=== PATIENT | male | born 1960 | race Caucasian/White ===

== ENCOUNTER → 2018-01-16 12:53 | Outpatient (CLI) | payer OTHER, SELFPAY ==
--- NOTE | 2018-01-16 13:04 | XR_ITS ---
XR facial bones min 3V COMPARISON: None HISTORY: Facial laceration TECHNIQUE: Valentin view, PA and lateral views FINDINGS: There is mild soft tissue swelling of the fore head and bridging of the nose. The nasal bone is intact. The orbital rims and orbital floors appear intact. The paranasal sinuses are clear. The nasal septum is in the midline. IMPRESSION: Diffuse soft tissue swelling of the fore head and bridging of the nose, no definite facial bone fracture identified
== END ==
PROVIDERS: PCP Nurse Practitioner Family; Visit Provider Nurse Practitioner Family
DX: S01.81XA Laceration without foreign body of other part of head, initial encounter (principal)
CPT/HCPCS: 70150

== ENCOUNTER → 2018-12-23 12:00 | Outpatient (CLI) | payer OTHER, SELFPAY ==
[2018-12-23 13:11] LABS: Erythrocyte Sedimentation Rate 9 mm/hr (0-20)
[2018-12-23 13:23] LABS: C-Reactive Protein < 0.2 mg/L (0.0-0.9); Chol/HDL Ratio 6.6 (1-3.5); Cholesterol 172 mg/dL (140-200); HDL Cholesterol 26 mg/dL (27-67); LDL Cholesterol 75 mg/dL (0-130); T4 (Thyroxine) 9.7 ug/dl (4.7-13.3); Thyroid Stimulating Hormone 2.52 uIU/ml (0.358-3.740); Triglycerides 354 mg/dL (30-200); VLDL Cholesterol 71 mg/dL (0-40)
[2018-12-24 08:57] LABS: PSA, Free 0.29 ng/mL; Prostate Specific Ag 1.1 ng/mL (0.0-4.0)
== END ==
PROVIDERS: Visit Provider Nurse Practitioner Family
DX: K52.9 Noninfective gastroenteritis and colitis, unspecified (principal); F41.9 Anxiety disorder, unspecified; I25.2 Old myocardial infarction; R10.84 Generalized abdominal pain; Z85.51 Personal history of malignant neoplasm of bladder
CPT/HCPCS: 36415; 80061; 84153; 84154; 84436; 84443; 85651; 86140

== ENCOUNTER → 2019-01-06 14:18 | Outpatient (CLI) | payer OTHER, SELFPAY ==
--- NOTE | 2019-01-06 14:22 | XR_ITS ---
XR chest 2V HISTORY: ITS.REASON: tob abuse ORDERING PHYSICIAN: Sin Haney MD PATIENT AGE: 58 years COMPARISON: None available FINDINGS: The cardiomediastinal silhouette and pulmonary vascularity are within normal limits. Mild emphysematous changes seen with mild hyperexpansion lung cuevas and flattening of hemidiaphragms. The lungs are clear without infiltrates. Is a noncalcified pulmonary nodule left upper lobe with some minimal stranding extending to the left apex. There is no pleural fluid. ,IMPRESSION: Mild or borderline COPD noncalcified pulmonary nodule left upper lobe measuring 1.1 cm in diameter and suggest a follow-up CT scan the chest for better evaluation and to evaluate for additional nodules in view of the smoking history
== END ==
PROVIDERS: PCP Nurse Practitioner Family; Visit Provider Internal Medicine
DX: Z72.0 Tobacco use (principal); I72.3 Aneurysm of iliac artery; I83.891 Varicose veins of right lower extremity with other complications; M79.604 Pain in right leg; E78.5 Hyperlipidemia, unspecified; I10 Essential (primary) hypertension; R20.0 Anesthesia of skin; R94.31 Abnormal electrocardiogram [ECG] [EKG]
CPT/HCPCS: 71046

== ENCOUNTER → 2019-01-13 12:12 | Outpatient (CLI) | payer OTHER, SELFPAY ==
--- NOTE | 2019-01-13 12:16 | NM_ITS ---
CARDIOLITE SPECT MYOCARDIAL PERFUSION LEXISCAN, REST AND STRESS: [facility] REVIEW QGS EF AND WALL MOTION EVALUATION: QPS - PERFUSION EVALUATION HISTORY: abn ekg DOSE: 10.28 mCi technetium 99m mibi intravenously at rest followed by 30.0 mCi technetium 99m mibi following the intravenous ministration of 0.4 mg of Lexiscan. Resting blood pressure is 131/80. Stress blood pressure 120/70. FINDINGS: Ejection fraction is calculated to be 45% Stress images reveal severely decreased activity in the inferior apical and septal wall. Rest images reveal no change. Gated images calculated ejection fraction of 45% with inferior apical septal hypokinesis. 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 This is an abnormal stress test in the high risk adequate coronary which requires clinical correlation
--- NOTE | 2019-01-13 14:52 | HMH.ITSHM ---
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 []LISINOPRIL LIPITOR
== END ==
PROVIDERS: PCP Nurse Practitioner Family; Visit Provider Internal Medicine
DX: R94.31 Abnormal electrocardiogram [ECG] [EKG] (principal); I72.3 Aneurysm of iliac artery; E78.5 Hyperlipidemia, unspecified; I10 Essential (primary) hypertension; I83.891 Varicose veins of right lower extremity with other complications; M79.604 Pain in right leg; R20.0 Anesthesia of skin
CPT/HCPCS: 78452; 93017; A9502; J2785

== ENCOUNTER → 2019-02-01 14:24 | Outpatient (CLI) | payer OTHER, SELFPAY ==
--- NOTE | 2019-02-01 14:26 | CT_ITS ---
CT chest wo con HISTORY: Follow-up abnormal chest x-ray, lung nodule, solitary pulmonary nodule ITS.REASON: nodule seen on cxr ORDERING PHYSICIAN: Carleen Tinajero APRN PATIENT AGE: 58 years COMPARISON: 01/06/2019 Technique: Axial images obtained. Sagittal, and coronal reformatted images are also generated and reviewed. All CT scans at the facility use one or more dose reduction, viz: automated exposure control, ma/kV adjustment per patient size (including targeted exams where dose is matched to indication, i.e. head), or iterative reconstruction technique. FINDINGS: There are scattered small nodes within the mediastinum. There is mild thickening of the pericardium anteriorly measuring approximately 11 mm. Coronary artery calcifications are present. There is increased soft tissue density which is anterior to the base of the aorta and 15 mm. This may be related to small amount fluid within the superior recess of the pericardium. Follow-up may confirm. No hilar mass. Scattered small nodes are present in the axilla There is diffuse panlobular emphysematous changes with scattered areas of fibrosis. There is a calcified nodule in the left upper lobe corresponding to the radiographic abnormality. Calcified nodules present in the right lung base posteriorly. There is noncalcified nodule left lower lobe posterior laterally at 5 mm. There are scattered small nodes in the periaortic region along the descending thoracic aorta. These have been present dating back to 04/21/2012. IMPRESSION: 1. Diffuse centrilobular edema with scattered fibrosis. 2. Radiographic abnormality in the left upper lobe corresponds to a 12 mm calcified nodule consistent with granuloma. 3. 5 mm noncalcified nodule left lower lobe posterior laterally 4. Mild thickening of the pericardium suspicious for small pericardial effusion with suspected small amount of fluid in the superior recess of the pericardium
== END ==
PROVIDERS: PCP Nurse Practitioner Family; Visit Provider Nurse Practitioner Family
DX: R91.8 Other nonspecific abnormal finding of lung field (principal); R93.89 Abnormal findings on diagnostic imaging of other specified body structures
CPT/HCPCS: 71250

== ENCOUNTER → 2019-05-18 10:12 | Outpatient (POV) | payer OTHER, SELFPAY | PROVIDERS: Visit Provider Internal Medicine | DX: Z00.00 Encounter for general adult medical examination without abnormal findings (principal) ==

== ENCOUNTER → 2019-05-26 14:24 | Outpatient (CLI) | payer OTHER, SELFPAY ==
[2019-05-26 15:30] VITALS: PULSE 85; PULSE 92
== END ==
PROVIDERS: PCP Nurse Practitioner Family; Visit Provider Internal Medicine
DX: J43.9 Emphysema, unspecified (principal); R06.02 Shortness of breath
CPT/HCPCS: 94060; 94618; 94640; 94727; 94729

== ENCOUNTER → 2019-08-27 11:47 | Outpatient (CLI) | payer OTHER, SELFPAY ==
[2019-08-27 12:20] LABS: Basophils # 0.1 K/mm3 (0-0.2); Basophils % 0.7 % (0.1-2.0); Eosinophils # 0.1 K/mm3 (0.0-0.4); Hematocrit 51.6 % (42.0-52.0); Hemoglobin 16.8 g/dL (14.1-18.0); Lymphocytes # 3.2 K/mm3 (0.7-4.5); Lymphocytes % 33.1 % (10-50); Mean Corpuscular HGB Conc 32.6 g/dL (31.8-35.4); Mean Corpuscular Hemoglobin 31.5 pg (27.0-31.2); Mean Corpuscular Volume 96.5 fl (80-94); Mean Platelet Volume 10.3 fl (7.4-10.4); Monocytes # 0.5 K/mm3 (0.1-1.0); Monocytes % 5.6 % (1.7-9.3); Neutrophils # 5.7 K/mm3 (1.8-7.8); Neutrophils % 59.6 % (37.0-80.0); Platelet Count 221 K/mm3 (142-424); Red Blood Count 5.34 M/mm3 (4.60-6.20); Red Cell Distribution Width 13.5 % (11.5-17.5); White Blood Count 9.6 K/mm3 (4.8-10.8)
[2019-08-27 13:04] LABS: Hemoglobin A1C 5.9 % (0.0-7.0)
[2019-08-27 17:29] LABS: Alanine Aminotransferase 41 U/L (12-78); Albumin Level 4.3 gm/dL (3.4-5.0); Albumin/Globulin Ratio 1.3 (1.1-1.8); Alkaline Phosphatase 85 U/L (46-116); Anion Gap 16.6 mEq/L (5-15); Aspartate Amino Transferase 20 U/L (15-37); Bilirubin,Total 0.4 mg/dL (0.2-1.0); Blood Urea Nitrogen 11 mg/dL (7-18); Calcium 8.9 mg/dL (8.5-10.1); Carbon Dioxide 22 mmol/L (21.0-32.0); Chloride 102 mmol/L (98-107); Cholesterol 133 mg/dL (140-200); Creatinine,Serum 0.89 mg/dL (0.70-1.30); Estimated Glomerular Filt Rate 88 ml/min (>60); GFR (African American) 107 ML/MIN (>60); Globulin 3.3 gm/dl (1.3-3.2); Glucose 129 mg/dL (74-106); HDL Cholesterol 22 mg/dL (27-67); LDL Cholesterol 32 mg/dL (0-130); Potassium 4.6 mmoL/L (3.5-5.1); Sodium 136 mmol/L (136-145); Total Protein,Serum 7.6 gm/dL (6.4-8.2); Triglycerides 394 mg/dL (30-200); VLDL Cholesterol 79 mg/dL (0-40)
== END ==
PROVIDERS: Visit Provider Nurse Practitioner Family
DX: D72.829 Elevated white blood cell count, unspecified (principal); I10 Essential (primary) hypertension; R73.09 Other abnormal glucose; E78.5 Hyperlipidemia, unspecified
CPT/HCPCS: 36415; 80053; 80061; 83036; 85025

== ENCOUNTER → 2020-03-07 17:51 | Outpatient (CLI) | payer MEDICAID, SELFPAY ==
[2020-03-07 18:32] LABS: Basophils # 0.1 K/mm3 (0-0.2); Basophils % 0.6 % (0.1-2.0); Eosinophils # 0.1 K/mm3 (0.0-0.4); Eosinophils % 0.9 % (0.1-12.0); Hematocrit 48.1 % (42.0-52.0); Hemoglobin 16.5 g/dL (14.1-18.0); Lymphocytes # 3.1 K/mm3 (0.7-4.5); Lymphocytes % 32.1 % (10-50); Mean Corpuscular HGB Conc 34.3 g/dL (31.8-35.4); Mean Corpuscular Hemoglobin 32.5 pg (27.0-31.2); Mean Corpuscular Volume 94.7 fl (80-94); Mean Platelet Volume 11.8 fl (7.4-10.4); Monocytes # 0.4 K/mm3 (0.1-1.0); Monocytes % 4.5 % (1.7-9.3); Neutrophils % 61.8 % (37.0-80.0); Platelet Count 242 K/mm3 (142-424); Red Blood Count 5.08 M/mm3 (4.60-6.20); Red Cell Distribution Width 12.8 % (11.5-17.5); White Blood Count 9.7 K/mm3 (4.8-10.8)
[2020-03-07 18:40] LABS: Chloride 107 mmol/L (98-107); Sodium 139 mmol/L (136-145)
[2020-03-07 18:41] LABS: Potassium 4.2 mmoL/L (3.5-5.1)
[2020-03-07 18:43] LABS: Alanine Aminotransferase 37 U/L (12-78); Albumin Level 4.5 g/dl (3.5-5.0); Albumin/Globulin Ratio 1.7 (1.1-1.8); Alkaline Phosphatase 96 U/L (38-126); Anion Gap 16.2 mEq/L (5-15); Aspartate Amino Transferase 36 U/L (17-59); Bilirubin,Total 0.5 mg/dl (0.2-1.3); Blood Urea Nitrogen 16 mg/dl (9-20); Carbon Dioxide 20 mmol/L (22.0-30.0); Estimated Glomerular Filt Rate 99 ml/min (>60); GFR (African American) 120 ML/MIN (>60); Globulin 2.7 g/dL (1.3-3.2); Total Protein,Serum 7.2 g/dl (6.3-8.2)
[2020-03-07 18:44] LABS: Calcium 9.1 mg/dl (8.4-10.2); Cholesterol 93 mg/dl (140-200); Glucose 163 mg/dl (74-100); HDL Cholesterol 31 mg/dl (40-60); Triglycerides 272 mg/dl (30-150); VLDL Cholesterol 54 mg/dL (0-40)
[2020-03-07 19:23] LABS: Direct LDL Cholesterol 49.25 mg/dL (100-129)
[2020-03-07 19:29] LABS: T4 (Thyroxine) 7.5 ug/dl (5.53-11.0)
[2020-03-09 10:00] LABS: PSA, Free 0.31 ng/mL; Prostate Specific Ag 1.3 ng/mL (0.0-4.0)
== END ==
PROVIDERS: Visit Provider Nurse Practitioner Family
DX: E78.5 Hyperlipidemia, unspecified (principal); I10 Essential (primary) hypertension
CPT/HCPCS: 80053; 80061; 82652; 84153; 84154; 84436; 84443; 85025

== ENCOUNTER → 2020-11-24 17:26 | Outpatient (CLI) | payer MEDICAID, SELFPAY ==
[2020-11-24 17:48] LABS: Basophils # 0.1 K/mm3 (0-0.2); Basophils % 0.6 % (0.1-2.0); Eosinophils % 0.4 % (0.1-12.0); Hematocrit 52.4 % (42.0-52.0); Hemoglobin 17.4 g/dL (14.1-18.0); Lymphocytes # 3.2 K/mm3 (0.7-4.5); Lymphocytes % 33.7 % (10-50); Mean Corpuscular HGB Conc 33.2 g/dL (31.8-35.4); Mean Corpuscular Hemoglobin 32.1 pg (27.0-31.2); Mean Corpuscular Volume 96.6 fl (80-94); Mean Platelet Volume 12.4 fl (7.4-10.4); Monocytes # 0.5 K/mm3 (0.1-1.0); Monocytes % 5.8 % (1.7-9.3); Neutrophils # 5.6 K/mm3 (1.8-7.8); Neutrophils % 59.5 % (37.0-80.0); Platelet Count 208 K/mm3 (142-424); Red Blood Count 5.43 M/mm3 (4.60-6.20); Red Cell Distribution Width 12.8 % (11.5-17.5); White Blood Count 9.4 K/mm3 (4.8-10.8)
[2020-11-24 18:29] LABS: Chloride 106 mmol/L (98-107); Potassium 5.6 mmoL/L (3.5-5.1); Sodium 143 mmol/L (136-145)
[2020-11-24 18:31] LABS: Alanine Aminotransferase 52 U/L (12-78); Anion Gap 16.6 mEq/L (5-15); Aspartate Amino Transferase 39 U/L (17-59); Blood Urea Nitrogen 17 mg/dl (9-20); Carbon Dioxide 26 mmol/L (22.0-30.0); Estimated Glomerular Filt Rate 86 ml/min (>60); GFR (African American) 105 ML/MIN (>60)
[2020-11-24 18:32] LABS: Albumin Level 5.2 g/dl (3.5-5.0); Albumin/Globulin Ratio 1.5 (1.1-1.8); Alkaline Phosphatase 82 U/L (38-126); Bilirubin,Total 0.6 mg/dl (0.2-1.3); Calcium 10.7 mg/dl (8.4-10.2); Chol/HDL Ratio 4.2 (1-3.5); Cholesterol 133 mg/dl (140-200); Globulin 3.4 g/dL (1.3-3.2); Glucose 138 mg/dl (74-100); HDL Cholesterol 32 mg/dl (40-60); Total Protein,Serum 8.6 g/dl (6.3-8.2); Triglycerides 165 mg/dl (30-150); VLDL Cholesterol 33 mg/dL (0-40)
[2020-11-24 18:43] LABS: Direct LDL Cholesterol 54.35 mg/dL (100-129)
[2020-11-24 18:47] LABS: Free T4 (Free Thyroxine) 0.99 ng/dl (0.78-2.19)
[2020-11-24 19:04] LABS: Thyroid Stimulating Hormone 2.71 uIU/mL (0.465-4.68)
== END ==
PROVIDERS: Visit Provider Nurse Practitioner Family
DX: I72.3 Aneurysm of iliac artery (principal); I83.891 Varicose veins of right lower extremity with other complications; I10 Essential (primary) hypertension; E78.5 Hyperlipidemia, unspecified; Z12.5 Encounter for screening for malignant neoplasm of prostate
CPT/HCPCS: 80053; 80061; 82306; 84439; 84443; 85025; G0103

== ENCOUNTER → 2021-03-07 13:36 | Outpatient (CLI) | payer MEDICAID, SELFPAY | PROVIDERS: Visit Provider Urology | DX: Z01.812 Encounter for preprocedural laboratory examination (principal); Z20.822 Contact with and (suspected) exposure to COVID-19; C67.9 Malignant neoplasm of bladder, unspecified | CPT/HCPCS: U0003 ==

== ENCOUNTER 2021-03-09 09:53 | Day surgery (SDC) | payer MEDICAID, SELFPAY ==
[2021-03-06 09:13] VITALS: BMI 25.7
[2021-03-09 10:13] VITALS: BP 148/92; PULSE 88; RESP 16; TEMP 36.7; O2SAT 97
[2021-03-09 10:58] VITALS: BP 137/86; PULSE 84; RESP 18; TEMP 36.7; O2SAT 94
--- NOTE | 2021-03-09 11:10 | HMH.OPNOTE ---
Date of procedure: 03/09/21 Pre-op Diagnosis:: History of bladder cancer Post-op Diagnosis:: History of bladder cancer Procedure performed:: Surveillance cystoscopy Surgeon:: Bj Limon MD Anesthesia: local Estimated blood loss (mL): 0 Clinical Note:: Patient is a 60-year-old white male with history of bladder cancer. His initial tumor was resected in 2011 in the has had no recurrences since then. He denies any interval hematuria since his last cystoscopy 1 year ago. Operative findings:: No evidence of recurrence Operative note:: Patient taken to the cystoscopy suite after informed consent was obtained. On the stretcher is prepped draped in the standard surgical fashion and percent lidocaine placed into the urethra and the urethra clamped for 5 minutes. The flexible cystoscope and introduced into the urethral meatus and to the prostatic urethra which showed some mild hyperplasia. The bladder was entered and examined in a systematic fashion. There is no evidence of recurrent tumors. There is no evidence of trabeculation, cellules, stones or diverticula. The ureteral orifices in their normal anatomic position with clear efflux of urine. Bladder neck was within normal limits. The scope removed patient tolerated the procedure well we discussed the findings. We will see him back in 1 year for follow-up. Condition: stable Disposition: same day Specimens:: None Complications:: None
== END 2021-03-09 11:04 | disposition home or self-care (01) ==
LOC: OUTP 09:54
PROVIDERS: PCP Nurse Practitioner Family; Visit Provider Urology
PROC: (CPT 52000; principal; 2021-03-09 10:45)
DX: Z09 Encounter for follow-up examination after completed treatment for conditions other than malignant neoplasm (principal); Z85.51 Personal history of malignant neoplasm of bladder; Z90.6 Acquired absence of other parts of urinary tract; I10 Essential (primary) hypertension; E78.5 Hyperlipidemia, unspecified; Z79.899 Other long term (current) drug therapy
CPT/HCPCS: 52000

== ENCOUNTER 2021-04-03 10:18 | Emergency (ER) | payer MEDICAID, SELFPAY ==
[2021-04-03 10:20] VITALS: BP 138/89; PULSE 97; RESP 21; TEMP 37.4; O2SAT 96; BMI 26.9
--- NOTE | 2021-04-03 10:53 | HMH.EDUTC ---
[facility] [place] Clinical Impression: Sinusitis Qualifiers: Sinusitis location: unspecified location Chronicity: acute Recurrence: non-recurrent Qualified Code(s): J01.90 - Acute sinusitis, unspecified Disposition: Home, Self-Care Condition on Discharge: Good Instructions: DI for Sinusitis Additional Instructions: Drink plenty of fluids. Take tylenol or ibuprofen for pain or fever. Take the medications as directed. Follow up with your regular doctor. GO TO THE ER FOR ANY WORSENING SYMPTOMS Prescriptions: guaiFENesin [Mucinex 600mg tablet] 1 - 2 tab PO BIDP PRN #30 tab.er.12h PRN Reason: Congestion Transmission Status: Received by [facility] Azithromycin [Z-Kenny 250mg Tab*] 250 mg PO UD DOSE PK #6 tab Transmission Status: Received by [facility] Referrals: Ponce Nelson APRN [Primary Care Provider] - Time of Disposition: 11:10 Medical Decision Making - Medical Records Medical records reviewed: No: I reviewed the patient's medical records. - Rene Inquiry Pt receiving controlled substance: No Vital Signs: 04/03/21 10:20 04/03/21 11:13 Temperature 99.3 F 99.3 F Temperature Source Temporal Artery Scan Pulse Rate 97 H Pulse Rate [Right Brachial] 97 H Respiratory Rate 21 21 Blood Pressure 138/89 Blood Pressure [Right Arm] 138/89 Blood Pressure Mean [Right Arm] 105 Blood Pressure Source [Right Arm] Automatic Cuff Blood Pressure Position [Right Arm] Sitting 02 Sat by Pulse Oximetry 96 Oxygen Delivery Method Room Air [facility] [place] - General Stated complaint: sinus infectiomn Time Seen by Provider: 04/03/21 10:54 Mode of Arrival: Ambulatory Source of Information: Patient Limitations: No Limitations Description of Symptoms (Recalled from Triage Doc. by RN): PATIENT C/O SORE THROAT, HEADACHE, EAR PAIN, AND NASAL CONGESTION HEENT Symptoms (Recalled from RN notes): Yes Resp Symptoms (Recalled from RN notes): No Skin Symptoms (Recalled from RN notes): No MS Symptoms (Recalled from RN notes): No Functional Status (Recalled from RN notes): WNL - History of Present Illness Provider Complaint: He states that for the past 2 days he has had worsening sinus congestion, sinus pressure and left sided facial pressure. He is also having left sided ear pain. He originally started having sinus congestion around 2 weeks ago, but it worsened over the past 2 days. He denies any covid exposure that he knows of. He has been vaccinated against covid. He also states that he has had a negative covid test since his original symptoms began (he had a cystoscopy procedure done and and had to be tested before). - Related Data Home Medications Medication Instructions Recorded Confirmed Amitriptyline HCl [Elavil 25mg 25 mg PO DAILY 03/06/21 03/09/21 tablet] Atorvastatin Calcium [Lipitor 10mg See Rx Instructions .ROUTE .COMPLEX 03/06/21 03/09/21 Tab] Buspirone HCl [Buspar 10mg 10 mg PO BID 03/06/21 03/09/21 tablet] Sertraline HCl [Zoloft] 50 mg PO DAILY 03/06/21 03/09/21 Previous Rx's Medication Instructions Recorded gemfibrozil 600 mg tablet See Rx Instructions .ROUTE 03/14/21 .COMPLEX #180 tab lisinopril 5 mg tablet See Rx Instructions .ROUTE 03/14/21 .COMPLEX #90 tab Azithromycin [Z-Kenny 250mg Tab*] 250 mg PO UD DOSE PK #6 tab 04/03/21 guaiFENesin [Mucinex 600mg tablet] 1 - 2 tab PO BIDP PRN #30 04/03/21 tab.er.12h Allergies Allergy/AdvReac Type Severity Reaction Status Date / Time No Known Drug Allergies Allergy Unknown Verified 03/09/21 10:12 - Worker's Comp Is this a Worker's Comp case?: No [facility] History - Hepatitis A Screen Drug use history?: No High risk sexual behaviors?: No History of sexually transmitted infection?: No Currently employed?: No Childcare worker?: No Do you have indoor plumbing?: Yes Do you have electricity?: Yes Attestation statement:: This patient has been screened for Hepatitis A risk factors. I have reviewed t
[2021-04-03 11:13] VITALS: BP 138/89; PULSE 97; RESP 21; TEMP 37.4; O2SAT 96
== END 2021-04-03 11:16 | disposition home or self-care (01) ==
PROVIDERS: Emergency Provider Nurse Practitioner Family; PCP Nurse Practitioner Family
DX: J01.90 Acute sinusitis, unspecified (principal); F41.8 Other specified anxiety disorders; E78.5 Hyperlipidemia, unspecified; F17.210 Nicotine dependence, cigarettes, uncomplicated; I10 Essential (primary) hypertension; Z79.899 Other long term (current) drug therapy

== ENCOUNTER 2021-11-12 15:18 | Emergency (ER) | payer MEDICAID, SELFPAY ==
[2021-11-12 16:34] VITALS: BP 151/97; PULSE 94; RESP 19; TEMP 37.2; O2SAT 97; BMI 25.7
--- NOTE | 2021-11-12 16:35 | HMH.EDUTC ---
[facility] [place] Clinical Impression: Sinusitis Qualifiers: Sinusitis location: unspecified location Chronicity: acute Recurrence: non-recurrent Qualified Code(s): J01.90 - Acute sinusitis, unspecified Disposition: Home, Self-Care Condition on Discharge: Good Instructions: DI for Sinusitis, Ceftriaxone Injection, Methylprednisolone Injection Additional Instructions: Drink plenty of fluids. Take tylenol or ibuprofen for pain or fever. Take the medications as directed. Follow up with your regular doctor. GO TO THE ER FOR ANY WORSENING SYMPTOMS Don't start the oral steroids until tomorrow, since you had the shot here today. Prescriptions: Amoxicillin/Potassium Clav [Augmentin 875-125 Tablet] 1 tab PO Q12H 10 Days #20 tab Transmission Status: Received by [facility] methylPREDNISolone [Medrol] 4 mg PO DIRECTED 6 Days #21 packet Transmission Status: Received by [facility] guaiFENesin [Mucinex 600mg tablet] 1 - 2 tab PO BIDP PRN #30 tab PRN Reason: Congestion Transmission Status: Received by [facility] Referrals: Ponce Nelson APRN [Primary Care Provider] - Time of Disposition: 17:04 Medical Decision Making - Medical Records Medical records reviewed: No: I reviewed the patient's medical records. - Rene Inquiry Pt receiving controlled substance: No Vital Signs: 11/12/21 16:34 11/12/21 17:29 Temperature 99.0 F 99.0 F Temperature Source Oral Oral Pulse Rate 94 H Pulse Rate [Right Brachial] 94 H Respiratory Rate 19 18 Blood Pressure 151/97 H Blood Pressure [Right Arm] 151/97 H Blood Pressure Mean [Right Arm] 115 Blood Pressure Source Automatic Cuff Blood Pressure Source [Right Arm] Automatic Cuff 02 Sat by Pulse Oximetry 97 Oxygen Delivery Method Room Air Room Air Orders (Tests/Meds): ED MEDICATIONS Discontinued Medications Generic Name Dose Route Start Last Admin Trade Name Freq PRN Reason Stop Dose Admin Ceftriaxone Sodium 1 gm 11/12/21 16:56 11/12/21 17:10 Ceftriaxone 1gm Vial IM 11/12/21 16:57 1 gm ONCE ONE Administration Lidocaine HCl 0 ml 11/12/21 16:56 11/12/21 17:10 Lidocaine 1% 5ml Pf Vial IM 11/12/21 16:57 5 ml ONCE ONE Administration Methylprednisolone Sodium Succinate 125 mg 11/12/21 16:56 11/12/21 17:10 Methylprednisolone Sod Succ 125mg Vial IM 11/12/21 16:57 125 mg ONCE ONE Administration [facility] [place] HPI - General Stated complaint: sinus infection Time Seen by Provider: 11/12/21 16:57 - History of Present Illness Provider Complaint: He states that for the past 3 days he has had worsening sinus congestion and bilateral ear pressure and pain. He usually gets a sinus infection at this time of the year every year. He states that this feels like his normal sinus infection symptoms. He denies any covid-19 exposure. He states that he has been fully vaccinated against covid-19. He refuses a covid-19 test at this time because he states that he has not been exposed and he feels exactly like he does when he gets a sinus infection. - Related Data Home Medications Medication Instructions Recorded Confirmed Amitriptyline HCl [Elavil 25mg 25 mg PO DAILY 03/06/21 11/12/21 tablet] Previous Rx's Medication Instructions Recorded gemfibrozil 600 mg tablet See Rx Instructions .ROUTE 09/13/21 .COMPLEX #180 tab lisinopril 5 mg tablet See Rx Instructions .ROUTE 09/13/21 .COMPLEX #90 tab atorvastatin 10 mg tablet See Rx Instructions .ROUTE 11/06/21 .COMPLEX #30 tab Amoxicillin/Potassium Clav 1 tab PO Q12H 10 Days #20 tab 11/12/21 [Augmentin 875-125 Tablet] buspirone 10 mg tablet 10 mg PO BID #60 tab 11/12/21 guaiFENesin [Mucinex 600mg tablet] 1 - 2 tab PO BIDP PRN #30 tab 11/12/21 methylPREDNISolone [Medrol] 4 mg PO DIRECTED 6 Days #21 11/12/21 packet sertraline 50 mg tablet 50 mg PO DAILY #30 tab 11/12/21 Allergies Allergy/AdvReac Type Severity Reaction Status Date / Time N
[2021-11-12 17:29] VITALS: BP 151/97; PULSE 94; RESP 18; TEMP 37.2; O2SAT 97
== END 2021-11-12 17:25 | disposition home or self-care (01) ==
PROVIDERS: Emergency Provider Nurse Practitioner Family; PCP Nurse Practitioner Family
DX: J01.90 Acute sinusitis, unspecified (principal); I10 Essential (primary) hypertension; E78.5 Hyperlipidemia, unspecified; F41.8 Other specified anxiety disorders; F17.210 Nicotine dependence, cigarettes, uncomplicated
CPT/HCPCS: 96372; 99202; G0463; J0696

== ENCOUNTER → 2021-12-14 13:21 | Outpatient (CLI) | payer MEDICAID, SELFPAY ==
[2021-12-13 18:20] LABS: Basophils # 0.1 K/mm3 (0-0.2); Basophils % 1.2 % (0.1-2.0); Eosinophils # 0.1 K/mm3 (0.0-0.4); Eosinophils % 0.7 % (0.1-12.0); Hematocrit 52.4 % (42.0-52.0); Lymphocytes # 3.7 K/mm3 (0.7-4.5); Lymphocytes % 39.8 % (10-50); Mean Corpuscular HGB Conc 32.5 g/dL (31.8-35.4); Mean Corpuscular Hemoglobin 32.1 pg (27.0-31.2); Mean Platelet Volume 12.2 fl (7.4-10.4); Monocytes # 0.5 K/mm3 (0.1-1.0); Monocytes % 5.4 % (1.7-9.3); Neutrophils # 4.9 K/mm3 (1.8-7.8); Neutrophils % 52.9 % (37.0-80.0); Platelet Count 270 K/mm3 (142-424); Red Blood Count 5.29 M/mm3 (4.60-6.20); White Blood Count 9.2 K/mm3 (4.8-10.8)
[2021-12-13 18:41] LABS: Alanine Aminotransferase 66 U/L (12-78); Albumin Level 5.1 g/dl (3.5-5.0); Albumin/Globulin Ratio 1.8 (1.1-1.8); Alkaline Phosphatase 80 U/L (38-126); Anion Gap 18.8 mEq/L (5-15); Aspartate Amino Transferase 43 U/L (17-59); Bilirubin,Total 0.7 mg/dl (0.2-1.3); Blood Urea Nitrogen 15 mg/dl (9-20); Calcium 9.8 mg/dl (8.4-10.2); Carbon Dioxide 24 mmol/L (22.0-30.0); Chloride 103 mmol/L (98-107); Chol/HDL Ratio 5.6 (1-3.5); Cholesterol 146 mg/dl (140-200); Estimated Glomerular Filt Rate 115 ml/min (>60); GFR (African American) 139 ML/MIN (>60); Globulin 2.8 g/dL (1.3-3.2); Glucose 128 mg/dl (74-100); HDL Cholesterol 26 mg/dl (40-60); Potassium 4.8 mmoL/L (3.5-5.1); Sodium 141 mmol/L (136-145); Total Protein,Serum 7.9 g/dl (6.3-8.2); Triglycerides 295 mg/dl (30-150); VLDL Cholesterol 59 mg/dL (0-40)
[2021-12-13 18:51] LABS: Direct LDL Cholesterol 52.74 mg/dL (100-129)
[2021-12-13 19:00] LABS: 25-OH Vitamin D, Total 43.5 ng/mL (30-100)
[2021-12-13 19:10] LABS: Free T4 (Free Thyroxine) 0.98 ng/dl (0.78-2.19)
[2021-12-13 19:13] LABS: Prostate Specific Ag Screen 1.1 ng/ml (0.0-4.0); Thyroid Stimulating Hormone 2.06 uIU/mL (0.465-4.68)
== END ==
PROVIDERS: Visit Provider Nurse Practitioner Family
DX: E03.9 Hypothyroidism, unspecified (principal); R53.83 Other fatigue; K59.00 Constipation, unspecified; Z12.5 Encounter for screening for malignant neoplasm of prostate
CPT/HCPCS: 80053; 80061; 82306; 84439; 84443; 85025; G0103

== ENCOUNTER → 2022-03-08 11:58 | Outpatient (CLI) | payer MEDICAID, SELFPAY | PROVIDERS: PCP Nurse Practitioner Family; Visit Provider Urology | DX: Z01.812 Encounter for preprocedural laboratory examination (principal); Z20.822 Contact with and (suspected) exposure to COVID-19; C67.9 Malignant neoplasm of bladder, unspecified | CPT/HCPCS: C9803; U0003; U0005 ==

== ENCOUNTER 2022-03-11 08:13 | Day surgery (SDC) | payer MEDICAID, SELFPAY ==
[2022-03-08 12:22] VITALS: BMI 26.4
[2022-03-11 08:26] VITALS: BP 137/91; PULSE 86; RESP 18; TEMP 36.7; O2SAT 95
[2022-03-11 09:36] VITALS: BP 145/80; PULSE 83; RESP 18; TEMP 36.6; O2SAT 95
[2022-03-11 09:38] VITALS: BP 145/80; PULSE 83; RESP 18; O2SAT 95
--- NOTE | 2022-03-11 09:46 | HMH.OPNOTE ---
Date of procedure: 03/11/22 Pre-op Diagnosis:: History of bladder cancer Post-op Diagnosis:: History of bladder cancer with no evidence of recurrence today. Procedure performed:: Surveillance cystoscopy Surgeon:: Bj Limon MD Anesthesia: local Estimated blood loss (mL): 0 Clinical Note:: 61-year-old white male with history of bladder cancer. His initial bladder tumor was in 2011. He has had no recurrences over the last 10 years. He denies any interval gross hematuria. Operative findings:: No evidence of bladder cancer. Operative note:: Patient taken to the cystoscopy suite after informed consent was obtained. On the stretcher he was prepped and draped in the standard surgical fashion. 2% lidocaine placed into the urethra and the urethra clamped for 5 minutes. Clamp removed and the flexible cystoscope introduced into the urethral meatus. Passed into the bladder without difficulty and the bladder examined in a systematic fashion. There was no evidence of recurrent bladder tumors, stones, diverticula or trabeculation. The ureteral orifices in their normal anatomic position and clear efflux of urine noted from each. The scope was retroflexed showing a small median lobe. Scope then pulled back to the prostatic urethra which showed no evidence of obstruction. The anterior urethra was within normal limits as well. Scope removed the patient tolerated the procedure well there are no complications. We discussed that it has been 10 years since his initial and only tumor recurrence. I am going to release him to follow-up as needed. Condition: stable Disposition: same day Specimens:: None Complications:: None
== END 2022-03-11 09:38 | disposition home or self-care (01) ==
LOC: OUTP 08:13
PROVIDERS: PCP Nurse Practitioner Family; Visit Provider Urology
PROC: (CPT 52000; principal; 2022-03-11 09:00)
DX: Z08 Encounter for follow-up examination after completed treatment for malignant neoplasm (principal); Z85.51 Personal history of malignant neoplasm of bladder
CPT/HCPCS: 52000

== ENCOUNTER → 2022-10-17 12:00 | Outpatient (CLI) | payer MEDICAID, SELFPAY ==
[2022-10-17 15:20] LABS: Basophils # 0.1 K/mm3 (0-0.2); Basophils % 1.1 % (0.1-2.0); Eosinophils % 0.4 % (0.1-12.0); Hematocrit 52.3 % (42.0-52.0); Hemoglobin 16.6 g/dL (14.1-18.0); Lymphocytes # 2.8 K/mm3 (0.7-4.5); Lymphocytes % 28.2 % (10-50); Mean Corpuscular HGB Conc 31.7 g/dL (31.8-35.4); Mean Corpuscular Hemoglobin 31.1 pg (27.0-31.2); Mean Corpuscular Volume 98.1 fl (80-94); Mean Platelet Volume 12.2 fl (7.4-10.4); Monocytes # 0.6 K/mm3 (0.1-1.0); Neutrophils # 6.5 K/mm3 (1.8-7.8); Neutrophils % 64.4 % (37.0-80.0); Platelet Count 236 K/mm3 (142-424); Red Blood Count 5.33 M/mm3 (4.60-6.20); Red Cell Distribution Width 12.9 % (11.5-17.5)
[2022-10-17 15:38] LABS: Chloride 104 mmol/L (98-107); Potassium 4.4 mmoL/L (3.5-5.1); Sodium 139 mmol/L (136-145)
[2022-10-17 15:40] LABS: Alanine Aminotransferase 52 U/L (12-78); Aspartate Amino Transferase 38 U/L (17-59); Blood Urea Nitrogen 16 mg/dl (9-20); Estimated Glomerular Filt Rate 115 ml/min (>60); GFR (African American) 139 ML/MIN (>60)
[2022-10-17 15:41] LABS: Albumin Level 4.6 g/dl (3.5-5.0); Albumin/Globulin Ratio 1.6 (1.1-1.8); Alkaline Phosphatase 78 U/L (38-126); Anion Gap 15.4 mEq/L (5-15); Bilirubin,Total 0.6 mg/dl (0.2-1.3); Calcium 9.2 mg/dl (8.4-10.2); Carbon Dioxide 24 mmol/L (22.0-30.0); Chol/HDL Ratio 5.6 (1-3.5); Cholesterol 141 mg/dl (140-200); Globulin 2.8 g/dL (1.3-3.2); Glucose 160 mg/dl (74-100); HDL Cholesterol 25 mg/dl (40-60); Total Protein,Serum 7.4 g/dl (6.3-8.2); Triglycerides 304 mg/dl (30-150); VLDL Cholesterol 61 mg/dL (0-40)
[2022-10-17 15:53] LABS: Direct LDL Cholesterol 48.12 mg/dL (100-129)
[2022-10-17 16:09] LABS: Thyroid Stimulating Hormone 2.05 uIU/mL (0.465-4.68)
== END ==
PROVIDERS: PCP Nurse Practitioner Family; Visit Provider Nurse Practitioner Family
DX: L02.91 Cutaneous abscess, unspecified (principal); B95.8 Unspecified staphylococcus as the cause of diseases classified elsewhere; R53.83 Other fatigue; I10 Essential (primary) hypertension; E78.5 Hyperlipidemia, unspecified
CPT/HCPCS: 80053; 80061; 83036; 84443; 85025; 87070; 87077; 87186; 87205

== ENCOUNTER → 2023-06-11 12:00 | Outpatient (CLI) | payer MEDICAID, SELFPAY ==
[2023-06-11 18:03] LABS: Basophils % 0.4 % (0.1-2.0); Eosinophils # 0.1 K/mm3 (0.0-0.4); Eosinophils % 0.6 % (0.1-12.0); Hemoglobin 16.7 g/dL (14.1-18.0); Lymphocytes # 3.4 K/mm3 (0.7-4.5); Lymphocytes % 32.1 % (10-50); Mean Corpuscular HGB Conc 33.4 g/dL (31.8-35.4); Mean Corpuscular Hemoglobin 31.5 pg (27.0-31.2); Mean Corpuscular Volume 94.3 fl (80-94); Mean Platelet Volume 11.2 fl (7.4-10.4); Monocytes # 0.5 K/mm3 (0.1-1.0); Monocytes % 4.8 % (1.7-9.3); Neutrophils # 6.6 K/mm3 (1.8-7.8); Neutrophils % 62.1 % (37.0-80.0); Platelet Count 245 K/mm3 (142-424); Red Cell Distribution Width 12.7 % (11.5-17.5); White Blood Count 10.7 K/mm3 (4.8-10.8)
[2023-06-11 19:12] LABS: Alanine Aminotransferase 19 U/L (12-78); Albumin Level 5.2 g/dl (3.5-5.0); Albumin/Globulin Ratio 1.7 (1.1-1.8); Alkaline Phosphatase 83 U/L (38-126); Anion Gap 19.8 mEq/L (5-15); Aspartate Amino Transferase 23 U/L (17-59); Bilirubin,Total 0.3 mg/dl (0.2-1.3); Blood Urea Nitrogen 23 mg/dl (9-20); Calcium 9.6 mg/dl (8.4-10.2); Carbon Dioxide 23 mmol/L (22.0-30.0); Chloride 102 mmol/L (98-107); Chol/HDL Ratio 3.3 (1-3.5); Cholesterol 125 mg/dl (140-200); Estimated Glomerular Filt Rate 86 ml/min (>60); GFR (African American) 104 ML/MIN (>60); Glucose 81 mg/dl (74-100); HDL Cholesterol 38 mg/dl (40-60); Potassium 4.8 mmoL/L (3.5-5.1); Sodium 140 mmol/L (136-145); Total Protein,Serum 8.2 g/dl (6.3-8.2); Triglycerides 72 mg/dl (30-150); VLDL Cholesterol 14 mg/dL (0-40)
[2023-06-11 19:23] LABS: Direct LDL Cholesterol 60.77 mg/dL (100-129)
[2023-06-11 19:32] LABS: 25-OH Vitamin D, Total 60.5 ng/mL (30-100)
[2023-06-11 19:44] LABS: Prostate Specific Ag Screen 1.1 ng/ml (0.0-4.0); Thyroid Stimulating Hormone 1.61 uIU/mL (0.465-4.68)
[2023-06-11 22:10] LABS: Hemoglobin A1C 5.8 % (4.0-6.0)
== END ==
PROVIDERS: PCP Nurse Practitioner Family; Visit Provider Nurse Practitioner Family
DX: K45.8 Other specified abdominal hernia without obstruction or gangrene (principal); E78.5 Hyperlipidemia, unspecified; Z79.899 Other long term (current) drug therapy; Z12.5 Encounter for screening for malignant neoplasm of prostate
CPT/HCPCS: 80053; 80061; 82306; 83036; 84443; 85025; G0103

== ENCOUNTER → 2023-06-12 10:50 | Outpatient (CLI) | payer MEDICAID, SELFPAY ==
--- NOTE | 2023-06-12 10:51 | CT_ITS ---
FINAL REPORT TECHNIQUE: Axial images through the abdomen and pelvis were performed without contrast. This study was performed with techniques to keep radiation doses as low as reasonably achievable, (ALARA). Individualized dose reduction techniques using automated exposure control or adjustment of mA and/or kV according to the patient's size were employed. CLINICAL HISTORY: Hernia, right groin FINDINGS: ABDOMEN: There is bibasilar atelectasis. Moderate emphysema is identified. The heart size is normal. Limited images of the liver are unremarkable. The spleen is normal. No adrenal mass is identified. The aorta is normal in caliber. There is no significant free fluid or adenopathy. There is no nephrolithiasis. There is no hydronephrosis. PELVIS: The appendix is normal. There is sigmoid diverticulosis without evidence of diverticulitis. There is a small right inguinal hernia containing fat. The urinary bladder is unremarkable. There is no significant free fluid or adenopathy. IMPRESSION: Small right inguinal hernia containing fat. Reviewed, Interpreted and Dictated by Yogi Gray III, MD Transcribed by Rachel Miller Authenticated and [facility]
== END ==
PROVIDERS: PCP Nurse Practitioner Family; Visit Provider Nurse Practitioner Family
DX: K40.91 Unilateral inguinal hernia, without obstruction or gangrene, recurrent (principal)
CPT/HCPCS: 74176

== ENCOUNTER → 2023-07-02 12:16 | Outpatient (CLI) | payer MEDICAID, SELFPAY ==
--- NOTE | 2023-07-02 12:32 | ECG_ITS ---
APPROVED REPORT Exam: Resting ECG HR:74 bpm ECG Measurements Heart Rate 74 AXES GA 173 P 75 QRSd 109 QRS -54 QT 351 T 56 QTc 379 Conclusion SINUS RHYTHM LEFT AXIS DEVIATION [QRS AXIS < -30] INFERIOR MYOCARDIAL INFARCTION , PROBABLY OLD [40+ ms Q WAVE AND/OR ST/T ABNORMALITY IN II/aVF] ABNORMAL ECG UNCONFIRMED REPORT Electronically signed by : Catrachito Limon MD 07/03/2023 17:20:07
[2023-07-02 12:42] LABS: Microscopic, Urine URINE MICROSCOPIC (MICROSCOPIC)
[2023-07-02 13:19] LABS: Basophils % 0.3 % (0.1-2.0); Eosinophils % 0.4 % (0.1-12.0); Hematocrit 50.9 % (42.0-52.0); Hemoglobin 16.3 g/dL (14.1-18.0); Lymphocytes # 2.9 K/mm3 (0.7-4.5); Lymphocytes % 35.3 % (10-50); Mean Corpuscular Hemoglobin 30.7 pg (27.0-31.2); Mean Platelet Volume 9.5 fl (7.4-10.4); Monocytes # 0.5 K/mm3 (0.1-1.0); Neutrophils # 4.8 K/mm3 (1.8-7.8); Neutrophils % 57.9 % (37.0-80.0); Platelet Count 259 K/mm3 (142-424); White Blood Count 8.3 K/mm3 (4.8-10.8)
[2023-07-02 13:20] LABS: Appearance,Urine CLEAR (Clear); Bilirubin,Urine Negative (Negative); Blood, Urine TRACE-I (Negative); Color,Urine YELLOW (Yellow); Glucose,Urine (UA) Negative (Negative); Ketones,Urine Negative (Negative); Leukocyte Esterase,Urine Negative (Negative); Nitrate,Urine Negative (Negative); Protein,Urine Negative (Negative); Urobilinogen,Urine 0.2 EU/dl (0.2)
[2023-07-02 13:37] LABS: Anion Gap 16.9 mEq/L (5-15); Bacteria,Urine Trace /lpf; Blood Urea Nitrogen 23 mg/dl (9-20); Calcium 9.5 mg/dl (8.4-10.2); Carbon Dioxide 25 mmol/L (22.0-30.0); Chloride 105 mmol/L (98-107); Estimated Glomerular Filt Rate 86 ml/min (>60); GFR (African American) 104 ML/MIN (>60); Glucose 81 mg/dl (74-100); Potassium 4.9 mmoL/L (3.5-5.1); RBC,Urine Occasional #/hpf (0-3); Sodium 142 mmol/L (136-145); Squamous Epithelial Cell,Urine Occasional #/hpf (0-5); WBC,Urine Occasional #/hpf (0-3)
== END ==
PROVIDERS: PCP Nurse Practitioner Family; Visit Provider Surgery
DX: Z01.818 Encounter for other preprocedural examination (principal); K46.9 Unspecified abdominal hernia without obstruction or gangrene
CPT/HCPCS: 36415; 80048; 81001; 85025; 93005

== ENCOUNTER 2023-07-03 06:03 | Day surgery (SDC) | payer MEDICAID, SELFPAY ==
[2023-07-02 12:00] VITALS: BMI 23.0
[2023-07-03] VITALS (11 sets, daily range): BP systolic 110–122; BP diastolic 57–81; PULSE 71–104; RESP 16–22; TEMP 36.3–43; O2SAT 92–98
--- NOTE | 2023-07-03 07:02 | P.PNANES_ITS ---
[facility] Disclaimer: The information contained in this section may have been updated after the patient was seen, as this information can be updated by other users. Medical History Generalized anxiety disorder History of bladder cancer History of myocardial infarction Surgical History History of cardiac cath History of colonoscopy Family History Other No significant family history Social History Smoking Status: Current every day smoker tobacco type: cigarettes packs per day: 1 alcohol intake: never substance use type: marijuana current occupational status: retired Travel in the last 8 weeks: None household members: none housing: house number of children: 0 current occupational exposures/hazards: No caffeine: Yes [facility] Anesthesia Checklist Patient Identification Patient Identification: Arm Band and Family Structural Data Admitted From: Home Planned Operative Procedure/s: Open Inguinal Hernia Repair Consent for Planned Operative Procedure(s) Verified: Yes Verified Documents: Surgical Consent and History and Physical NPO Status Verified Time NPO: 00:00 Additional verifications Patient : No Anesthesia Reactions: No Hx Blood Transfusions: No Blood Transfusion Reaction: No Cephalosporin Allergy: No Previous Colonoscopy: Yes Airway Assessment Mallampati Score:: Class II C-Spine Mobility Assessed: Yes TMJ Mobility Assessed: Yes Dentition: Good Dentition Neurological Assessment Level of Consciousness: Awake and Alert Anesthesia Plan Anesthesia Risk discussed: Yes Anesthesia Plan: Verified ASA Class: III Anesthesia Type: General
--- NOTE | 2023-07-03 08:37 | P.OP_ITS ---
Date of procedure: 07/03/23 Pre-op Diagnosis:: Right inguinal hernia Post-op Diagnosis:: Same Procedure performed:: Open right inguinal hernia repair Surgeon:: Cody Le MD Anesthesia: GETOtilio Estimated blood loss (mL): 15 Operative findings:: Large direct defect Operative note:: After informed consent was obtained the patient was taken to the operating room and placed in the supine position. General anesthesia was induced and his abdom en and groin/scrotum were prepped and draped in a sterile fashion. After infiltration with local anesthetic an oblique right groin incision was made. Electrocautery was used to transect through Jewel's fascia to the level of the external aponeurosis. The external aponeurosis was opened sharply to the level of the external ring. The contents of the canal were carefully elevated. A large direct defect was encountered. An extra-large PerFix plug was secured in position using interrupted Ethibond. The PerFix overlay was then secured to the shelving edge inferiorly and fascial margin superiorly using interrupted Ethibond. The external aponeurosis was reapproximated with running 2-0 Vicryl. Jewel's fascia was closed in the same manner. Skin was then reapproximated utilizing the NSorb stapler. Dressings were applied and the patient was transferred to recovery in stable condition. Condition: stable Disposition: PACU Specimens:: None Complications:: No immediate
--- NOTE | 2023-07-03 08:54 | EXP.ANES.I ---
[facility] Anesthesia Record Part I Anesthesia Record I Intake, IV Amount: 1,000 Hydration: Adequate Estimated blood loss (mL): 15 Urine output (mL): 400 Blood Products used (#): none Blood Pressure: 120/77 SaO2: 92 Pulse Rate: 104 Airway Patency: Patent Respiratory Rate: 22 Temperature: 98.7 F Patient is:: Drowsy and Stable Stable to PACU at:: 08:45
[2023-07-03 14:42] LABS: Microscopic,Cath URINE MICROSCOPIC (MICROSCOPIC)
[2023-07-03 15:02] LABS: Appearance,Urine/Cath CLEAR (Clear); Bilirubin,Cath Negative (Negative); Blood, Urine/Cath 1+ (Negative); Color,Urine/Cath YELLOW (Yellow); Glucose,Urine/Cath (UA) Negative (Negative); Ketones,Urine/Cath Negative (Negative); Leukocyte Esterase,Cath Negative (Negative); Nitrate,Cath Negative (Negative); PH,Urine/Cath 5.5 (5.0-8.5); Protein,Urine/Cath 1+ (Negative); Specific Gravity, Urine/Cath >= 1.030 (1.005-1.030); Urobilinogen,Cath 0.2 EU/dl (0.2)
[2023-07-03 15:23] LABS: Bacteria,Urine/Cath TRACE /lpf; CA Oxalate Crystals,Ur/Cath 4+ /lpf; Squamous Epithelial Ur./Cath Occasional #/hpf (0-5); WBC,Urine/Cath Occasional #/hpf (0-3)
--- NOTE | 2023-07-04 13:46 | P.PNANES_ITS ---
[facility] Anesthesia Record Part II Anesthesia Record Part II Discharge Time: 09:15 Destination: Surgical Day Care (OP Surgery) PACU nurse assessment reviewed?: Yes Patient Condition:: Good Anesthesia Complications:: None Swallowing reflex intact?: Yes Airway Patency: Patent Cyanosis?: No Blood Pressure: 122/81 SaO2: 95 Respiratory Rate: 19 Pulse Rate: 93 Temperature: 98.1 F Mental Status: Alert & Oriented Pain level:: 0 Nausea and/or vomitting:: None Intake, IV Amount: 0 Hydration: Adequate
[2023-07-04 13:47] VITALS: BP 122/81; PULSE 93; RESP 19; TEMP 36.7; O2SAT 95
== END 2023-07-03 10:00 | disposition home or self-care (01) ==
PROVIDERS: PCP Nurse Practitioner Family; Visit Provider Surgery
PROC: (CPT 49505; principal; 2023-07-03 07:30)
DX: K40.90 Unilateral inguinal hernia, without obstruction or gangrene, not specified as recurrent (principal)
CPT/HCPCS: 49505; 81001; 96374; J2405

== ENCOUNTER → 2023-08-27 13:40 | Outpatient (CLI) | payer MEDICAID, SELFPAY ==
--- NOTE | 2023-08-27 13:42 | XR_ITS ---
FINAL REPORT CLINICAL HISTORY: knee pain FINDINGS: Left knee Three views were obtained. There is no acute fracture or dislocation. The joint spaces appear normal. No soft tissue abnormality is identified. IMPRESSION: No acute process. Reviewed, Interpreted and Dictated by Yogi Gray III, MD Transcribed by Rachel Miller Authenticated and [facility]
== END ==
PROVIDERS: PCP Nurse Practitioner Family; Visit Provider Orthopaedic Surgery
DX: M25.562 Pain in left knee (principal)
CPT/HCPCS: 73562

== ENCOUNTER 2024-05-05 15:15 | Outpatient (CLI) | payer MEDICAID, SELFPAY ==
[2024-05-05 18:40] LABS: Basophils # 0.1 K/mm3 (0-0.2); Basophils % 0.6 % (0.1-2.0); Eosinophils % 0.5 % (0.1-12.0); Hematocrit 50.2 % (42.0-52.0); Hemoglobin 16.6 g/dL (14.1-18.0); Lymphocytes # 2.9 K/mm3 (0.7-4.5); Lymphocytes % 30.2 % (10-50); Mean Corpuscular HGB Conc 33.1 g/dL (31.8-35.4); Mean Corpuscular Hemoglobin 32.2 pg (27.0-31.2); Mean Corpuscular Volume 97.3 fl (80-94); Mean Platelet Volume 11.5 fl (7.4-10.4); Monocytes # 0.6 K/mm3 (0.1-1.0); Monocytes % 6.1 % (1.7-9.3); Neutrophils % 62.5 % (37.0-80.0); Platelet Count 225 K/mm3 (142-424); Red Blood Count 5.16 M/mm3 (4.60-6.20); Red Cell Distribution Width 13.5 % (11.5-17.5); White Blood Count 9.7 K/mm3 (4.8-10.8)
[2024-05-05 19:02] LABS: Alanine Aminotransferase 20 U/L (12-78); Albumin Level 4.8 g/dl (3.5-5.0); Albumin/Globulin Ratio 1.5 (1.1-1.8); Alkaline Phosphatase 86 U/L (38-126); Anion Gap 14.6 mEq/L (5-15); Aspartate Amino Transferase 27 U/L (17-59); Bilirubin,Total 0.7 mg/dl (0.2-1.3); Blood Urea Nitrogen 19 mg/dl (9-20); Calcium 9.8 mg/dl (8.4-10.2); Carbon Dioxide 23 mmol/L (22.0-30.0); Chloride 106 mmol/L (98-107); Chol/HDL Ratio 3.8 (1-3.5); Cholesterol 146 mg/dl (140-200); Estimated Glomerular Filt Rate 86 ml/min (>60); GFR (African American) 103 ML/MIN (>60); Globulin 3.2 g/dL (1.3-3.2); Glucose 99 mg/dl (74-100); HDL Cholesterol 38 mg/dl (40-60); Potassium 4.6 mmoL/L (3.5-5.1); Sodium 139 mmol/L (136-145); Triglycerides 119 mg/dl (30-150); VLDL Cholesterol 24 mg/dL (0-40)
[2024-05-17 09:09] LABS: 1,25 Dihydroxy Vitamin D 64 pg/mL (.); 1,25-Dihydroxy, Vitamin D-2 <10 pg/mL (.); 1,25-Dihydroxy, Vitamin D-3 64 pg/mL (.)
== END 2024-05-05 23:59 | disposition home or self-care (01) ==
LOC: LAB.DROPOF 05-06 14:14
PROVIDERS: PCP Nurse Practitioner Family; Visit Provider Nurse Practitioner Family
DX: R53.83 Other fatigue (principal); K52.9 Noninfective gastroenteritis and colitis, unspecified; I10 Essential (primary) hypertension; E78.2 Mixed hyperlipidemia; Z72.0 Tobacco use
CPT/HCPCS: 80050; 80053; 80061; 82652; 84443; 85025

== ENCOUNTER 2024-07-09 12:12 | Emergency (ER) | payer MEDICAID, SELFPAY ==
[2024-07-09 12:23] VITALS: BP 145/85; PULSE 93; RESP 18; TEMP 36.6; O2SAT 96; BMI 23.0
--- NOTE | 2024-07-09 12:27 | ED_ITS ---
Discharge Plan Disposition Patient Disposition: Home, Self-Care Condition: Good Prescriptions Prescriptions: New amoxicillin 500 mg capsule 500 mg PO TID 7 Days Qty: 21 0RF ciprofloxacin-dexamethasone 0.3-0.1 % drops,suspension 4 drp otic (ear) Q12H 7 Days Qty: 7.5 0RF Rx Instructions: apply 4 drops in right ear as directed No Action atorvastatin 10 mg tablet See Rx Instructions .ROUTE .COMPLEX Qty: 90 2RF Dose Instruction: TAKE ONE TABLET BY MOUTH EVERY DAY -PATIENT NEEDS AN APPOINTMENT BEFORE ANYMORE REFILLS Rx Instructions: TAKE ONE TABLET BY MOUTH EVERY DAY -PATIENT NEEDS AN APPOINTMENT BEFORE ANYMORE REFILLS sertraline 100 mg tablet See Rx Instructions .ROUTE .COMPLEX Qty: 30 1RF Dose Instruction: TAKE 1 TABLET BY MOUTH ONCE DAILY Rx Instructions: TAKE 1 TABLET BY MOUTH ONCE DAILY lisinopril 5 mg tablet See Rx Instructions .ROUTE .COMPLEX Qty: 90 0RF Dose Instruction: TAKE 1 TABLET BY MOUTH ONCE DAILY FOR BLOOD PRESSURE Rx Instructions: TAKE 1 TABLET BY MOUTH ONCE DAILY FOR BLOOD PRESSURE gemfibrozil 600 mg tablet See Rx Instructions .ROUTE .COMPLEX Qty: 180 0RF Dose Instruction: TAKE 1 TABLET BY MOUTH TWICE DAILY Rx Instructions: TAKE 1 TABLET BY MOUTH TWICE DAILY buspirone 10 mg tablet 10 mg PO BID Qty: 60 2RF Referrals Follow up/Referrals: Ponce Nelson APRN [Primary Care Provider] - See instructions Activity Restrictions/Add. Instructions Additional Instructions/Restrictions: Take Amoxicillin as prescribed Use ear drops as directed Follow up with your Family Doctor if no improvement or any worsening of symptoms/swelling of ear Return if needed Straight to ER if any life threatening symptoms If the swelling in your ear and canal keeps swelling may need to return for ear wick placement Clinical Impressions Clinical Impression: Otitis media, Otitis externa Instructions Patient Instructions: Ciprofloxacin and Dexamethasone Otic, Amoxicillin Print Language Print Language: Mozamb[place] Discharge ED Provider: [facility] General Stated complaint: right ear pain Mode of Arrival: Ambulatory Source of Information: Patient Limitations: No Limitations Time Seen by Provider: 07/09/24 12:27 Description of Symptoms (Recalled from Triage Doc. by RN): Reports right ear pain. HEENT Symptoms (Recalled from RN notes): Yes Resp Symptoms (Recalled from RN notes): No Skin Symptoms (Recalled from RN notes): No MS Symptoms (Recalled from RN notes): No Functional Status (Recalled from RN notes): wnl History of Present Illness Provider Complaint: Patient states that he has been having pain and tenderness in his right ear for several days States that he has tried sweet oil, peroxide and a few other home remedies but none is helping so today he came in Related Data Previous Rx's ?Medication ?Instructions ?Recorded atorvastatin 10 mg tablet See Rx Instructions .Route 05/20/24 .COMPLEX #90 ea gemfibrozil 600 mg tablet See Rx Instructions .Route 05/20/24 .COMPLEX #180 tabs lisinopril 5 mg tablet See Rx Instructions .Route 05/20/24 .COMPLEX #90 tabs sertraline 100 mg tablet See Rx Instructions .Route 05/20/24 .COMPLEX #30 tabs buspirone 10 mg tablet 10 mg PO BID Depression #60 tabs 06/21/24 amoxicillin 500 mg capsule 500 mg PO TID 7 days #21 caps 07/09/24 ciprofloxacin 0.3 %-dexamethasone 4 drp otic (ear) Q12H 7 days #7.5 07/09/24 0.1 % ear drops,suspension mL Allergies Allergy/AdvReac Type Severity Reaction Status Date / Time No Known Drug Allergies Allergy Unknown Verified 05/05/24 14:45 Worker's Comp Is this a Worker's Comp case?: No [facility] Disclaimer: The information contained in this section may have been updated after the patient was seen, as this information can be updated by other users. Medical History History of inguinal hernia History of bladder cancer History of myocardial infarction Generalized anxiety disorder Surgical History History of cardiac cath History of colonoscopy Family History Other No significant family history Social History Smoking Status: Current every day smoker tobacco type: cigarettes packs per day: 1 alcohol intake: never substance use type: marijuana current occupational status: retired Travel in the last 8 weeks: None household members: none housing: house number of children: 0 current occupational exposures/hazards: No caffeine: Yes ROS Obtained: Yes All systems reviewed & no additional complaints except as documented and Yes Systems reviewed as appropriate & no additional complaints except as documented Constitutional Constitutional: Reports system reviewed and no additional complaints, except as documented and Reports as per HPI ENT Ears, Nose, Mouth, and Throat: Reports system reviewed and no additional complaints, except as documented, Reports as per HPI and Reports otalgia Cardiovascular Cardiovascular: Reports system reviewed and no additional complaints, except as documented and Reports as per HPI Respiratory Respiratory: Reports system reviewed and no additional complaints, except as documented and Reports as per HPI Gastrointestinal Gastrointestingal: Reports system reviewed and no additional complaints, except as documented and as per HPI Physical Exam General General appearance: alert and in no apparent distress ENT ENT exam: Present mucous membranes moist Expanded ENT Exam External ear exam: Present pain with movement (right) and external tenderness (right, swelling noted however still open to allow drops to pass) TM/Canal exam: Right TM: erythema and loss of landmarks Respiratory Respiratory exam: Present normal lung sounds bilaterally; Absent respiratory distress or wheezes Cardiovascular Cardiovascular exam: Present regular rate, normal rhythm and normal heart sounds Neurological Exam Neurological exam: Present alert, oriented X3 and normal gait Medical Decision Making Medical Records Screening: Per USPSTF and CDC recommendations, given the prevalence of disease in our region, it is our hospital?s policy to screen for HIV and viral Hepatitis for all patients aged 18 and over and those with ongoing risk factors. Rene Inquiry Pt receiving controlled substance: No Rene was queried for this patient: No Vital Signs: 07/09/24 12:23 Temperature 97.9 F Temperature Source Oral Pulse Rate [Radial] 93 H Respiratory Rate 18 Blood Pressure [Right Arm] 145/85 H Blood Pressure Mean [Right Arm] 105 Blood Pressure Source [Right Arm] Automatic Cuff Blood Pressure Position [Right Arm] Sitting 02 Sat by Pulse Oximetry 96 Oxygen Delivery Method Room Air
[2024-07-09 12:46] VITALS: BP 145/85; PULSE 93; RESP 18; TEMP 36.6; O2SAT 96
== END 2024-07-09 12:47 | disposition home or self-care (01) ==
PROVIDERS: Emergency Provider Nurse Practitioner; PCP Nurse Practitioner Family
DX: H60.391 Other infective otitis externa, right ear (principal); H66.91 Otitis media, unspecified, right ear; H92.01 Otalgia, right ear
CPT/HCPCS: 99212; G0381